=== PATIENT | male | born 1945 | race Caucasian/White ===

== ENCOUNTER 2022-08-06 07:50 | Inpatient (IN) | payer MEDICARE, BC ==
[2022-07-30 11:17] LABS: BASOPHILS % (AUTO) 0.5 % (0-1); EOSINOPHILS % (AUTO) 0.4 % (0-6); LYMPHOCYTES # (AUTO) 1.4 X10'3 (1.1-4.8); LYMPHOCYTES % (AUTO) 16.9 % (21-51); MEAN CORPUSCULAR HEMOGLOBIN 29.4 PG (27.0-31.0); MEAN CORPUSCULAR HGB CONC 33.4 g/dL (33.0-36.5); MEAN CORPUSCULAR VOLUME 87.8 FL (78-98); MEAN PLATELET VOLUME 8.1 FL (7.4-10.4); MONOCYTES # (AUTO) 0.7 X10'3 (0-0.9); MONOCYTES % (AUTO) 8.4 % (2-12); NEUTROPHILS # (AUTO) 5.9 X10'3 (1.8-7.7); NEUTROPHILS % (AUTO) 73.8 % (42-75); PRE OP HEMOGLOBIN 17.4 g/dL (14.0-17.9); PRE OP PLATELET COUNT 279 X10'3 (140-440); RED BLOOD COUNT 5.92 X10'6 (4.70-6.10); RED CELL DISTRIBUTION WIDTH 15.2 % (11.5-14.5)
[2022-07-30 11:44] LABS: ALBUMIN 3.8 G/DL (3.4-5.0); ALKALINE PHOSPHATASE 71 IU/L (46-116); BLOOD UREA NITROGEN 13 MG/DL (7-18); CALCIUM 9.3 MG/DL (8.5-10.1); CHLORIDE 100 MMOL/L (99-107); CREATININE 1.08 MG/DL (0.60-1.10); PRE OP ALT 18 U/L (30-65); PRE OP ANION GAP 9 (8-16); PRE OP AST 21 U/L (10-37); PRE OP BILIRUB, TOTAL 0.8 MG/DL (0.0-1.0); PRE OP GLUCOSE 108 MG/DL (70-104); PRE OP POTASSIUM 4.2 MMOL/L (3.4-5.1); PRE OP SODIUM 139 MMOL/L (135-145); TOTAL PROTEIN 7.8 G/DL (6.4-8.2); eGFR 67 ML/MIN
[~2022-08-06] VITALS: Ht 185.4 cm; Wt 96.8 kg
[2022-08-06] VITALS (33 sets, daily range): BP systolic 84–150; BP diastolic 50–84
[~2022-08-06 07:50] MED LIST: APIX5TAB3 PO; DILT-117 PO; HYDROcodone/acetaminophen 10/325mg tab PO PRN; HYDROmorphone 1 mg/ml syringe IV PRN; HYDROmorphone inj. 0.5 MG/0.5 ML DISP.SYRIN IV PRN; ROPIVAcaine 0.5% (5mg/ml) 30ml vial ONE; acetaminophen 325mg tablet PO ONE; acetaminophen 325mg tablet PO PRN; bisacodyl 10mg suppository rectal RC PRN; ceFAZolin inj. 2,000 MG in dextrose 5%-water 100 ML IV ONE; celeCOXIB 100mg capsule PO ONE; cloNIDine hcl/PF 100mcg/ml inj ONE; diphenhydrAMINE 25mg capsule PO PRN; epiNEPHrine 1 mg/ml inj ONE; famotidine 20mg tablet PO ONE; gabapentin 300mg capsule PO ONE; ketorolac trometh. 30mg/ml inj. ONE; metoclopramide 5 mg/ml inj IV ONE; naloxone 0.4 mg/ml inj IV PRN; ondansetron/PF 4mg/2ml inj IV PRN; oxyCODONE SR 10mg (sust. release) tab -2 tabs (20mg) PO ONE; ringers solution, lacted 1,000 ML IV SCH; tranexamic acid inj. 1,000 MG in normal saline IV soln 100ML IV ONE; vancomycin 1,000mg inj ONE; vancomycin 1,500 MG in NS 300ml IV soln IV ONE
--- NOTE | 2022-08-06 10:23 | NUR ---
CMS NOTE: PT STATES HE SHOWERED USING THE HIBICLENS X5, NO MUPIROCIN ORDERED FOR THIS PT. PT STATES HE DID NOT WATCH A VIDEO BUT DID READ THE BOOKLET. PT HAS PALPABLE BILATERAL DORSALIS AND POSTERIOR TIBIAL PULSES AND HAVE BEEN MARKED. PT EDUCATED ON USE OF IS AND RETURN DEMONSTRATION PERFORMED.
[2022-08-06] MEDS ORDERED: MIDAZolam 1 MG/ML 5ML VIAL ONE (11:11)
[2022-08-06] MEDS ORDERED: fentaNYL/PF 50MCG/1 ML 2ML syringe ONE (11:11)
[2022-08-06] MEDS ORDERED: ROPIVAcaine 0.5% (5mg/ml) 30ml vial IJ ONE (11:36)
[2022-08-06] MEDS ORDERED: cloNIDine hcl/PF 100mcg/ml inj EP ONE (11:37)
[2022-08-06] MEDS ORDERED: epiNEPHrine 1 mg/ml inj SQ ONE (11:37)
[2022-08-06] MEDS ORDERED: ketorolac trometh. 30mg/ml inj. IV ONE (11:38)
[2022-08-06] MEDS ORDERED: albumin (Human) 5% 250ml 250 ML IV ONE (12:13)
[2022-08-06] MEDS ORDERED: morphine 2 MG/ML inj. syringe IV PRN (12:15)
[2022-08-06] MEDS ORDERED: meperidine/PF 25mg/ml syringe IV PRN ×3 (12:15)
[2022-08-06] MEDS ORDERED: ringers solution, lacted 1,000 ML IV SCH (12:15)
[2022-08-06] MEDS ORDERED: ondansetron/PF 4mg/2ml inj IV PRN (12:15)
[2022-08-06] MEDS ORDERED: morphine 4 MG/ML inj SYRINge IV PRN (12:15)
[2022-08-06] MEDS ORDERED: proCHLORperazine 10 MG/2 ml inj IV PRN (12:15)
--- NOTE | 2022-08-06 12:45 | NUR ---
Received from OR via HOSPITAL BED, accompanied by Anesthesiologist DR ROBERTO and report given by Anesthesiolgist. PT PRESENTS WITH PIV 18G LEFT WRIST, RIGHT HIP, MARISEL DRESSING WITH KNEE IMMOBILIZER CDI. VSS. Addendum: 08/06/22 at 1305 by Bibiana Herman RN RN Amended: Links added.
[2022-08-06] MEDS ORDERED: TRANEXAMIC ACID IV ONE (16:00)
[2022-08-06] MEDS ORDERED: NORMAL SALINE IV ONE (16:00)
--- NOTE | 2022-08-06 16:05 | NUR ---
Report called to receiving nurse STEFANI CONRAD. Transferred via HOSPITAL BED TO ROOM 4017. BED IN LOW LOCKED POSITION WITH CALL LIGHT IN REACH. PT HOOKED UP TO VITAL MACHINE. PT CALLED TO LET HER KNOW HER HAS BEEN TRANSFERED TO ROOM 4017 PT Belongings, 1 GREEN BAG TO ROOM 4017. Special Issues communicated to receiving nurse. Addendum: 08/06/22 at 1621 by Bibiana Herman RN, RN Amended: Links added.
[2022-08-06] MEDS: HYDROcodone/acetaminophen 10/325mg tab PO PRN (18:47)
[2022-08-06] MEDS ORDERED: VANCOMYCIN 1,500MG inj. 1,500 MG in normal saline 500ml IV soln 300 ML IV ONE (20:00)
[2022-08-06] MEDS ORDERED: sennosides 8.6mg tablet PO SCH (21:00)
[2022-08-06] MEDS ORDERED: magnesium hydroxide 30ml (MOM) UD suspension PO PRN (21:00)
[2022-08-06] MEDS ORDERED: diphenhydrAMINE 25mg capsule PO PRN (21:00)
[2022-08-06] MEDS: potassium cl 20mEq in 1/2 NS 1,000 ML IV SCH ×2 (21:57→23:00)
[2022-08-06] MEDS: apixaban 5mg tablet PO SCH (21:57)
[2022-08-06] MEDS: ascorbic acid 500mg tablet PO SCH (21:57)
[2022-08-06] MEDS: gabapentin 300mg capsule PO SCH (21:58)
[2022-08-07 02:00] VITALS: BP 116/81
[2022-08-07 05:02] LABS: BASOPHILS % (AUTO) 0.2 % (0-1); EOSINOPHILS % (AUTO) 0.1 % (0-6); HEMATOCRIT 41.7 % (42.0-52.0); LYMPHOCYTES # (AUTO) 0.9 X10'3 (1.1-4.8); LYMPHOCYTES % (AUTO) 10.6 % (21-51); MEAN CORPUSCULAR HEMOGLOBIN 29.2 PG (27.0-31.0); MEAN CORPUSCULAR HGB CONC 33.5 g/dL (33.0-36.5); MEAN CORPUSCULAR VOLUME 87.3 FL (78-98); MEAN PLATELET VOLUME 7.8 FL (7.4-10.4); MONOCYTES # (AUTO) 0.8 X10'3 (0-0.9); MONOCYTES % (AUTO) 9.9 % (2-12); NEUTROPHILS # (AUTO) 6.8 X10'3 (1.8-7.7); NEUTROPHILS % (AUTO) 79.2 % (42-75); PLATELET COUNT 230 X10'3 (140-440); RED BLOOD COUNT 4.77 X10'6 (4.70-6.10); RED CELL DISTRIBUTION WIDTH 14.8 % (11.5-14.5); WHITE BLOOD COUNT 8.5 X10'3 (4.5-11.0)
[2022-08-07 05:08] LABS: ANION GAP 4 (8-16); CHLORIDE 103 MMOL/L (99-107); POTASSIUM 4.9 MMOL/L (3.5-5.1); SODIUM 134 MMOL/L (135-145); TOTAL CARBON DIOXIDE 26.7 MMOL/L (24-32)
[2022-08-07] MEDS: HYDROcodone/acetaminophen 10/325mg tab PO PRN (05:32)
[2022-08-07 06:00] VITALS: BP 123/77
[2022-08-07] MEDS: potassium cl 20mEq in 1/2 NS 1,000 ML IV SCH (07:00)
[2022-08-07] MEDS ORDERED: diltiazem CD 120mg capsule (once-daily) PO SCH (08:00)
[2022-08-07] MEDS ORDERED: multivitamins, therapeutics tablet PO SCH (08:00)
[2022-08-07] MEDS: gabapentin 300mg capsule PO SCH (09:21)
[2022-08-07] MEDS: apixaban 5mg tablet PO SCH (09:21)
[2022-08-07] MEDS: ascorbic acid 500mg tablet PO SCH (09:22)
[2022-08-07 10:00] VITALS: BP 133/61
--- NOTE | 2022-08-07 11:02 | NUR ---
Joint surgery consult: Pt s/p R hip surgery this admit per EMR. Pt seen by GINNA for written/verbal high protein diet ed w/ RD contact information provided. GINNA encouraged pt to contact dietitian's office if further nutrition questions/concerns. Addendum: 08/07/22 at [address] Amended: Links added.
[2022-08-07] MEDS ORDERED: celeCOXIB 100mg capsule PO SCH (20:00)
== END 2022-08-07 11:15 | disposition home or self-care (01) | DRG 470 ==
LOC: PAS 07:50 → ORTHO 4S 16:05 → PAS 16:07 → ORTHO 4S 16:07
PROVIDERS: ADMIT Orthopaedic Surgery; ATTEND Orthopaedic Surgery
PROC: 3E0T3BZ Introduction of Anesthetic Agent into Peripheral Nerves and Plexi, Percutaneous Approach (ICD-10-PCS; 2022-08-06)
PROC: 3E0T33Z Introduction of Anti-inflammatory into Peripheral Nerves and Plexi, Percutaneous Approach (ICD-10-PCS; 2022-08-06)
PROC: 0SR906Z Replacement of Right Hip Joint with Oxidized Zirconium on Polyethylene Synthetic Substitute, Open Approach (ICD-10-PCS; principal; 2022-08-06 11:00)
DX: M16.11 Unilateral primary osteoarthritis, right hip (principal); Z79.01 Long term (current) use of anticoagulants; Z79.82 Long term (current) use of aspirin
CPT/HCPCS: 36415; 72170; 80051; 80053; 82948; 85025; 86885; 86900; 86901; 87081; 97110; 97116; 97161; 97530; A7000; C1776; G0378; J0171; J0690; J0735; J1885; J2175; J2250; J2765; J2795; J3010; J3370; J3480; J3490; J7040; J7060; J7120; P9045